=== PATIENT | male | born 1990 | race Caucasian/White ===

== ENCOUNTER 2016-07-02 01:13 | Emergency (ER) | payer SELFPAY ==
[~2016-07-02] VITALS: Ht 152.4 cm; Wt 81.6 kg
[2016-07-02 01:20] VITALS: BP 142/83
== END 2016-07-02 05:00 | disposition left against medical advice (07) ==
LOC: ER 01:18
DX: R51 Headache (principal); Z53.21 Procedure and treatment not carried out due to patient leaving prior to being seen by health care provider